=== PATIENT | female | born 1985 | race Caucasian/White ===

== ENCOUNTER 2016-04-07 19:43 | Emergency (ER) | payer OTHER ==
--- NOTE | 2016-04-07 22:18 | RAD ---
Indication: RIGHT shoulder pain. Pain at the AC joint. Question calcific tendinopathy. Comparison: None. Technique: Internal and external rotation AP and scapular Y views RIGHT shoulder Report: Normal acromioclavicular and glenohumeral joint alignment. Mildly prominent transverse gap at the AC joint. Negative for increased coracoclavicular distance. Mild AC joint osteophytosis and subchondral cystic change. Normal glenohumeral joint alignment. Negative for fracture. Negative for stigmata of calcific tendinopathy. Unremarkable soft tissue contours. IMPRESSION: 1. Low-grade AC joint separation and degenerative arthropathy. 2. Negative for calcific tendinopathy.
[2016-04-08] MEDS ORDERED: Ketorolac INJ* 60 MG/2 ML VIAL IM ONE
[2016-04-08 00:20] VITALS: BP 106/67
--- NOTE | 2016-04-08 15:28 | ED ---
Upper Extremity Pain - HPI Summary HPI Summary: Patient arrives with a 1 month worsening history of right shoulder pain not improving with rest, ice and OTC medications. Pain does not radiate. Pain is better with rest and worse with activity. She denies known trauma to the area. She works at [employer] and lifts a lot. She states she may have injured the area during that time. She states to lift the shoulder causes pain and she is unable to push or pull heavy objects without illiciting pain in the anterior shoulder. - History of Current Complaint Chief Complaint: Toma Stated Complaint: RIGHT SHOULDER PAIN Time Seen by Provider: 04/07/16 23:14 Hx Obtained From: Patient Mechanism Of Injury: Unknown Onset/Duration: Started Weeks Ago Timing: Constant Severity Initially: Moderate Severity Currently: Moderate Pain Location: Shoulder - right Alleviating Factor(s): Rest, Ice Related History: Dominant Hand Right - Risk Factors Non-Orthopedic Risk Factor: Negative DVT Risk Factors: Negative Septic Arthritis Risk Factor: Negative Compartment Syndrome Risk Factors: Pain - Allergies/Home Medications Allergies/Adverse Reactions: Allergies Allergy/AdvReac Type Severity Reaction Status Date / Time Nickel Allergy Mild Unknown Verified 04/07/16 19:53 Reaction Details Shellfish Allergy Allergy Swelling Verified 04/07/16 19:53 PMH/Surg Hx/FS Hx/Imm Hx Previously Healthy: Yes Endocrine/Hematology History: Denies: Hx Diabetes Cardiovascular History: Denies: Hx Hypertension, Hx Pacemaker/ICD Respiratory History: Reports: Hx Asthma History: Denies: Hx Dialysis, Hx Renal Disease Sensory History: Denies: Hx Hearing Aid Psychiatric History: Denies: Hx Panic Disorder - Surgical History Surgery Procedure, Year, and Place: GASTRIC SLEEVE; COSMETIC SKIN REMOVAL; tonsillectomy;. RIGHT ANKLE TENDON REPAIR - Immunization History Hx Pertussis Vaccination: Yes Immunizations Up to Date: Yes Infectious Disease History: No Infectious Disease History: Denies: Traveled Outside the [place] in Last 30 Days - Family History Known Family History: Negative: Cardiac Disease, Hypertension, Diabetes - Social History Occupation: Employed Full-time Lives: With Family Alcohol Use: Rare Hx Substance Use: No Substance Use Type: Reports: None Hx Tobacco Use: No Smoking Status (MU): Never Smoked Tobacco Review of Systems Constitutional: Negative Cardiovascular: Negative Respiratory: Negative Positive: Arthralgia - right shoulder Skin: Negative Neurological: Negative Psychological: Normal All Other Systems Reviewed And Are Negative: Yes Physical Exam Vital Signs On Initial Exam: Initial Vitals Temp Pulse Resp BP Pulse Ox 97.6 F 80 18 124/80 99 04/07/16 19:53 04/07/16 19:53 04/07/16 19:53 04/07/16 19:53 04/07/16 19:53 Completion Of Physical Exam Limited Due To: Dementia Appearance: Positive: Well-Appearing, No Pain Distress, Well-Nourished Skin: Positive: Warm, Skin Color Reflects Adequate Perfusion Eyes: Positive: Normal, EOMI Neck: Positive: Supple, Nontender, No Lymphadenopathy Respiratory/Lung Sounds: Positive: Clear to Auscultation Cardiovascular: Positive: Normal Bowel Sounds: Positive: Present Musculoskeletal: Positive: Interruption @, Abnormal @, Pain @. Negative: Other - Neer test, empty can test, positive ARC painful. Neurological: Positive: Sensory/Motor Intact, Alert, Oriented to Person Place, Time, Speech Normal Psychiatric: Positive: Normal, Affect/Mood Appropriate - Mitchell Coma Scale Best Eye Response: 4 - Spontaneous Best Motor Response: 6 - Obeys Commands Best Verbal Response: 5 - Oriented Diagnostics - Vital Signs Vital Signs Temp Pulse Resp BP Pulse Ox 04/08/16 00:19 97 F 60 16 106/67 04/07/16 21:50 98.5 F 71 18 125/70 99 04/07/16 19:53 97.6 F 80 18 124/80 99 - Laboratory Lab Statement: Any lab studies that have been ordered have been reviewed, and results considered in the medical decision making process. - Radiology No standard instances Xray Interpretation: Positive (See Comments) Radiology Interpretation Completed By: Radiologist - small tear of AC joint Course/Dx - Course Course Of Treatment: Neer test, empty can test, positive ARC painful. Unknown injury. Pain in right shoulder x1 month. worsening pain. Unable to lift, pull or push. Xray shows small AC tear in right shoulder. Restrictions given for work. Few doses of pain medication given, sling given and follow up with Dr. David. - Diagnoses Differential Diagnosis/HQI/PQRI: Positive: Arthritis, Strain, Sprain Provider Diagnoses: Acromioclavicular joint separation, type 1 Discharge - Discharge Plan Condition: Stable Disposition: HOME Prescriptions: HYDROcodone/ACETAMIN 5-325 MG* [Carrier 5-325 TAB*] 1 tab PO Q6H PRN #15 tab MDD 4 PRN Reason: Pain Patient Education Materials: Rotator Cuff Injury (ED) Forms: *Work Release Referrals: Non Staff,Doctor [Primary Care Provider] - Bianca David MD [Medical Doctor] -
== END 2016-04-08 00:19 | disposition home or self-care (01) ==
LOC: ED 19:43
DX: S43.101A Unspecified dislocation of right acromioclavicular joint, initial encounter (principal); M25.511 Pain in right shoulder; X58.XXXA Exposure to other specified factors, initial encounter; Y93.9 Activity, unspecified; Y92.9 Unspecified place or not applicable; Y99.9 Unspecified external cause status
CPT/HCPCS: 96372; 99282; J1885

== ENCOUNTER 2016-07-03 17:44 | Emergency (ER) | payer OTHER ==
[2016-07-03] MEDS ORDERED: NS 0.9% 1000 ML* 2,000 ML IV ONE (18:44)
[2016-07-03 19:08] LABS: Hematocrit 36 % (35-47); Hemoglobin 12.4 g/dl (12.0-16.0); Mean Corpuscular HGB Conc 34 g/dl (31-36); Mean Corpuscular Hemoglobin 30 pg (27-31); Mean Corpuscular Volume 88 fL (80-97); Mean Platelet Volume 8 um3 (7.4-10.4); Red Blood Count 4.15 10^6/ul (4.0-5.4); Red Cell Distribution Width 14 % (10.5-15); White Blood Count 8.1 10^3/ul (3.5-10.8)
[2016-07-03 19:09] LABS: Urine Bilirubin Negative (Negative); Urine Glucose Negative (Negative); Urine Nitrite Negative (Negative)
[2016-07-03 19:21] LABS: Albumin 3.4 g/dL (3.2-5.2); BUN/Creatinine Ratio 13.1 (8-20); Calcium 8.4 mg/dL (8.6-10.3); EGFR African American 145.3 (>60); Globulin 2.7 g/dL (2-4); Magnesium 1.8 mg/dL (1.9-2.7); Potassium 3.5 mmol/L (3.5-5.0); Total Bilirubin 0.5 mg/dL (0.2-1.0); Total Protein 6.1 g/dL (6.4-8.9)
[2016-07-03] MEDS ORDERED: Magnesium Oxide TAB* 400 MG PO ONE (19:58)
[2016-07-03] MEDS ORDERED: Potassium Chlor TAB* 20 MEQ TAB.ER PO ONE (19:58)
--- NOTE | 2016-07-03 20:02 | ED ---
Marcella Deleon Rebecca, scribed for Catherine Estevez MD on 07/03/16 at 1845 . - HPI Summary HPI Summary: Pt is a 31 y/o F who presents to ED c/o bilateral hand tremors. Sx suddenly began 2 days ago and have been intermittent since onset. Reports occasional tremors in the L hand, but sx are predominantly in the R hand. Sx aggravated and alleviated by nothing. Additionally c/o lightheadedness. Denies RAUSCH, dizziness, vomiting and dysuria. Reports a decrease in PO intake secondary to increased stress in the last week. 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 A1. LNMP in March,. - History of Current Complaint Chief Complaint: EDGeneral Stated Complaint: WEAKNESS, Time Seen by Provider: 07/03/16 18:25 Hx Obtained From: Patient Chief Complaint: Other: - Hand tremors Onset/Duration: Started Days Ago - 2 days ago, Still Present Timing: Intermittent Current Severity: None Pain Intensity: 0 Location of Pain: None Character: None Aggravating Factors: Nothing Alleviating Factors: Nothing Associated Signs and Symptoms: Positive: Other: - Hand tremors, lightheadedness. Negative: Vomiting - Allergies/Home Medications Allergies/Adverse Reactions: Allergies Allergy/AdvReac Type Severity Reaction Status Date / Time Nickel Allergy Mild Unknown Verified 07/03/16 17:48 Reaction Details Shellfish Allergy Allergy Swelling Verified 07/03/16 17:48 PMH/Surg Hx/FS Hx/Imm Hx Endocrine/Hematology History: Denies: Hx Diabetes Cardiovascular History: Denies: Hx Hypertension, Hx Pacemaker/ICD Respiratory History: Reports: Hx Asthma History: Denies: Hx Dialysis, Hx Renal Disease Sensory History: Denies: Hx Hearing Aid Psychiatric History: Denies: Hx Panic Disorder - Surgical History Surgery Procedure, Year, and Place: GASTRIC BYPASS,T&A, RT ANKLE SUGERY, SKIN REMOVAL Infectious Disease History: No Infectious Disease History: Denies: Traveled Outside the [place] in Last 30 Days - Family History Known Family History: Negative: Cardiac Disease, Hypertension, Diabetes - Social History Alcohol Use: Rare Hx Substance Use: No Substance Use Type: Reports: None Hx Tobacco Use: No Smoking Status (MU): Never Smoked Tobacco Review of Systems Negative: Vomiting Negative: dysuria Neurological: Other - Bilateral hand tremors, worse in the right; lightheadedness; Denies dizziness Negative: Headache All Other Systems Reviewed And Are Negative: Yes Physical Exam - Summary Physical Exam Summary: General: Well appearing, no pain distress Skin: Warm, Skin Color Reflects Adequate Perfusion, Dry Eyes: EOMI, ABDOUL ENT: Pharynx normal, TMs normal Neck: Supple, nontender Respiratory: CTA, breath sounds present, no rhonchi, no wheezes, no rales Cardiovascular: RRR, no murmur, no rub, no gallop Abdomen: Soft, nontender, Non-distended, no guarding, no rebound Bowel: Present Musculoskeletal: ZABRINA, No edema Neuro: Sensory/motor intact, A&Ox3, CN intact 2-12 Psych: Affect/mood appropriate - Physical Exam Triage Information Reviewed: Yes Vital Signs Reviewed: Yes Diagnostics - Vital Signs Vital Signs Temp Pulse Resp BP Pulse Ox 07/03/16 17:46 97.3 F 77 18 128/71 100 - Laboratory Lab Results: Lab Results 07/03/16 Range/Units 18:22 POC Glucose (mg/dL) 94 (74-106) mg/dL Result Diagrams: 07/03/16 18:55 07/03/16 18:55 Lab Statement: Any lab studies that have been ordered have been reviewed, and results considered in the medical decision making process. Re-Evaluation - Re-Evaluation First Eval Re-Evaluation Time: 19:58 Change: Improved Comment: Pt expresses that she would like to be D/C. Course/Dx - Course Course Of Treatment: pt here with lots of stressors in her life, family who has been shakey she is 14 weeks , she does have a mild tremor that does resolve when she is being examined. labs were fine except for borderline low potassium and mag, she described not doing a great job with hydration and did feel much better after a liter of ivf - Diagnoses Provider Diagnoses: Hypokalemia Discharge - Discharge Plan Condition: Stable Disposition: HOME Patient Education Materials: Hypokalemia (ED) Referrals: Non Staff,Doctor [Primary Care Provider] - 3 Days NIH Scale - NIH Scale Level of Consciousness: Alert/Keenly Responsive Ask Patient the Month and His/Her Age: Both Correct Ask Pt to Open/Close Eyes and Home Based Assistant/Release Non-Paretic Hand: Both Correctly Best Gaze (Only Horizontal Eye Movement): Normal Visual Field Testing: No Visual Loss Facial Paresis-Pt to Smile & Close Eyes or Grimace Symmetry: Normal/Symmetrical Motor Function - Right Arm: No Drift-Holds 10 Seconds Motor Function - Left Arm: No Drift-Holds 10 Seconds Motor Function - Right Leg: No Drift-Holds 10 Seconds Motor Function - Left Leg: No Drift-Holds 10 Seconds Limb Ataxia-Must be out of Proportion to Weakness Present: Absent Sensory (Use Pinprick to Test Arms/Legs/Trunk/Face): Normal Best Language (Describe Picture, Name Items): No Aphasia Dysarthria (Read Several Words): Normal Extinction and Inattention: No Abnormality Total Score: 0 The documentation as recorded by the Marcella green Rebecca accurately reflects the service I personally performed and the decisions made by me, Catherine Estevez MD.
[2016-07-03 20:25] VITALS: BP 103/64
[2016-07-04 07:48] LABS: TSH (Thyroid Stimulating Horm) 0.77 mcIU/mL (0.34-5.60)
== END 2016-07-03 20:20 | disposition home or self-care (01) ==
LOC: ED 17:44
DX: E87.6 Hypokalemia (principal); R25.1 Tremor, unspecified
CPT/HCPCS: 36415; 80053; 81003; 83605; 83735; 84443; 85025; 96360; 99283; A9270-GY

== ENCOUNTER 2016-07-06 04:08 | Emergency (ER) | payer OTHER ==
[2016-07-06] MEDS ORDERED: NS 0.9% 1000 ML* 1,000 ML IV ONE (04:31)
[2016-07-06 04:50] LABS: Hematocrit 35 % (35-47); Hemoglobin 12.1 g/dl (12.0-16.0); Mean Corpuscular HGB Conc 34 g/dl (31-36); Mean Corpuscular Hemoglobin 30 pg (27-31); Mean Corpuscular Volume 87 fL (80-97); Mean Platelet Volume 8 um3 (7.4-10.4); Red Blood Count 4.05 10^6/ul (4.0-5.4); Red Cell Distribution Width 14 % (10.5-15); White Blood Count 6.7 10^3/ul (3.5-10.8)
--- NOTE | 2016-07-06 05:04 | ED ---
Noelle Deleon Erika, scribed for Bud Tinsley MD on 07/06/16 at 0433 . GI/ HPI - HPI Summary HPI Summary: Patient is a 31-year-old female presenting to the ED with a CC of abdominal cramping in . Pt reports that she developed cramping around 01:00 today. Pain is located epigastric and in the lower abdomen. She denies vaginal bleeding. Pt is approximately 14 weeks . Pt states she most recently saw her OB on 07/02/2016, and they did an ultrasound. Pt states Hx miscarriage. - History of Current Complaint Chief Complaint: EDOBProblems Time Seen by Provider: 07/06/16 04:20 Stated Complaint: CRAMPING Hx Obtained From: Patient, Family/Content Assistant - Onset/Duration: Started Hours Ago, Atraumatic, Still Present Timing: Intermittent Severity: Moderate Pain Intensity: 4 Location of Pain: Epigastric - and lower abdomen Pain Characteristics: Cramping Additional Signs & Symptoms: Negative: Vaginal Bleeding Alleviating Factor(s): Nothing - Allergy/Home Medications Allergies/Adverse Reactions: Allergies Allergy/AdvReac Type Severity Reaction Status Date / Time Nickel Allergy Mild Unknown Verified 07/03/16 17:48 Reaction Details Shellfish Allergy Allergy Swelling Verified 07/03/16 17:48 PMH/Surg Hx/FS Hx/Imm Hx Endocrine/Hematology History: Denies: Hx Diabetes Cardiovascular History: Denies: Hx Hypertension, Hx Pacemaker/ICD Respiratory History: Reports: Hx Asthma History: Denies: Hx Dialysis, Hx Renal Disease Sensory History: Denies: Hx Hearing Aid Psychiatric History: Denies: Hx Panic Disorder - Surgical History Surgery Procedure, Year, and Place: GASTRIC BYPASS,T&A, RT ANKLE SUGERY, SKIN REMOVAL Infectious Disease History: No Infectious Disease History: Denies: Traveled Outside the [place] in Last 30 Days - Family History Known Family History: Negative: Cardiac Disease, Hypertension, Diabetes - Social History Lives: With Family Hx Substance Use: No Substance Use Type: Reports: None Hx Tobacco Use: No Smoking Status (MU): Never Smoked Tobacco Review of Systems Negative: Fever Positive: Abdominal Pain All Other Systems Reviewed And Are Negative: Yes Physical Exam Triage Information Reviewed: Yes Vital Signs On Initial Exam: Initial Vitals Temp Pulse Resp BP Pulse Ox 97.3 F 72 16 112/67 98 07/06/16 04:14 07/06/16 04:14 07/06/16 04:14 07/06/16 04:14 07/06/16 04:14 Vital Signs Reviewed: Yes Appearance: Positive: Well-Appearing, No Pain Distress Skin: Positive: Warm Head/Face: Positive: Normal Head/Face Inspection Eyes: Positive: ABDOUL ENT: Positive: Hearing grossly normal Neck: Positive: Supple Respiratory/Lung Sounds: Positive: Clear to Auscultation, Breath Sounds Present Cardiovascular: Positive: RRR Abdomen Description: Positive: Nontender - gravid uterus, Soft Bowel Sounds: Positive: Present Musculoskeletal: Positive: Strength/ROM Intact Neurological: Positive: Alert, Oriented to Person Place, Time Psychiatric: Positive: Affect/Mood Appropriate Diagnostics - Vital Signs Vital Signs Temp Pulse Resp BP Pulse Ox 07/06/16 04:14 97.3 F 72 16 112/67 98 - Laboratory Lab Results: Lab Results 07/06/16 Range/Units 04:35 WBC 6.7 (3.5-10.8) 10^3/ul RBC 4.05 (4.0-5.4) 10^6/ul Hgb 12.1 (12.0-16.0) g/dl Hct 35 (35-47) % MCV 87 (80-97) fL MCH 30 (27-31) pg MCHC 34 (31-36) g/dl RDW 14 (10.5-15) % Plt Count 173 (150-450) 10^3/ul MPV 8 (7.4-10.4) um3 Neut % (Auto) 51.9 (38-83) % Lymph % (Auto) 34.5 (25-47) % Barry % (Auto) 6.8 (1-9) % Eos % (Auto) 6.0 (0-6) % Baso % (Auto) 0.8 (0-2) % Absolute Neuts (auto) 3.5 (1.5-7.7) 10^3/ul Absolute Lymphs (auto) 2.3 (1.0-4.8) 10^3/ul Absolute Monos (auto) 0.5 (0-0.8) 10^3/ul Absolute Eos (auto) 0.4 (0-0.6) 10^3/ul Absolute Basos (auto) 0.1 (0-0.2) 10^3/ul Absolute Nucleated RBC 0 10^3/ul Nucleated RBC % 0.1 Result Diagrams: 07/06/16 04:35 07/06/16 04:35 Lab Statement: Any lab studies that have been ordered have been reviewed, and results considered in the medical decision making process. GIGU Course/Dx - Course Assessment/Plan: A 31 y/o F presents to the ED with a CC of abdominal cramping in . Blood work obtained, Beta HCG 82014. Patient is awaiting transvaginal US. Pt will be signed out to Dr. Monte pending ultrasound. - Diagnoses Provider Diagnoses: Pelvic cramping, Threatened miscarriage Discharge - Discharge Plan Condition: Stable Disposition: HOME Discharge Disposition Comment: Signed out to Dr. Monte pending transvaginal ultrasound Patient Education Materials: Threatened Miscarriage (ED), (ED), Pelvic Pain (ED) Referrals: [facility] [Provider Group] Additional Instructions: FOLLOW UP WITH YOUR DIRECTOR MEDICAL WRITING. The documentation as recorded by the Noelle green Erika accurately reflects the service I personally performed and the decisions made by , Bud Tinsley MD.
[2016-07-06 05:07] LABS: Albumin 3.4 g/dL (3.2-5.2); BUN/Creatinine Ratio 18.6 (8-20); C Reactive Protein 5.28 mg/L (< 5.00); Calcium 8.7 mg/dL (8.6-10.3); EGFR Non-African American 117.4 (>60); Globulin 2.6 g/dL (2-4); Potassium 3.3 mmol/L (3.5-5.0); Total Bilirubin 0.4 mg/dL (0.2-1.0)
[2016-07-06 09:03] LABS: Urine Bacteria Absent (Absent); Urine Bilirubin Negative (Negative); Urine Glucose Negative (Negative); Urine Nitrite Negative (Negative); Urine Sperm Present (Absent)
--- NOTE | 2016-07-06 10:02 | RAD ---
HISTORY: Cramping. The gestational age by dates is: Unknown COMPARISONS: None available at the time of dictation. TECHNIQUE: Multiple transverse and longitudinal ultrasound images were obtained of the gravid uterus using Grayscale, color Doppler, and M-mode Doppler imaging. FINDINGS: /PLACENTAL EVALUATION: Number of fetuses: Single Presentation: Variable cardiac activity: 161 bpm Gross motion: Observed Placenta position: Posterior Amniotic fluid volume: Normal BIOMETRY: Biparietal diameter: 2.6 cm 14 weeks, 5 days Head circumference: 10.3 cm 15 weeks, 0 days Abdominal circumference: 8.7 cm 15 weeks, 0 days Femur length: 1.4 cm 40 weeks, 2 days HC/AC: 1.19 Estimated weight: 102 grams, +/- 15 grams GESTATIONAL AGE: The composite gestational age is: Weeks, 6 days. The FLACO is: December 29, 2016. ANATOMY: An anatomic evaluation is not performed as part of this evaluation CERVIX: The cervix is long and closed, without funneling.. . OTHER: None IMPRESSION: 1. LIMITED STUDY THAT DOES NOT INCLUDE AN ANATOMIC EVALUATION. 2. SINGLE LIVE INTRAUTERINE GESTATION AT 14 WEEKS, 6 DAYS BY COMPOSITE GESTATIONAL AGE.
[2016-07-06 11:23] VITALS: BP 118/53
--- NOTE | 2016-07-06 18:18 | ED ---
ILloyd Billy, scribed for Esa Monte MD on 07/06/16 at 1116 . Progress - Progress Note Progress Note: Patient signed out by Dr. Tinsley at shift change pending pelvic ultrasound. Results reviewed. The case was discussed with Dr. Monique who recommended for the patient to be discharged home to follow up with her DISH TECHNICIAN. - Results/Orders Results/Orders: PELVIC ULTRASOUND: 1. LIMITED STUDY THAT DOES NOT INCLUDE AN ANATOMIC EVALUATION. 2. SINGLE LIVE INTRAUTERINE GESTATION AT 14 WEEKS, 6 DAYS BY COMPOSITE GESTATIONAL AGE. Course/Dx - Course Course Of Treatment: Patient signed out by Dr. Tinsley at shift change pending pelvic ultrasound. The patient came to the ED for evaluation of abdominal pranking. She is . He ordered a pelvic ultrasound and we were requested to follow up on the results. Pelvic ultrasound shows 1. limited study that does not include an anatomic evaluation. 2. single live intrauterine gestation at 14 weeks, 6 days by composite gestational age. I discussed these findings and test results with Dr. Monique who recommended for the patient to be discharged home to follow up with DISH TECHNICIAN. She does not have any abdominal cramping, vaginal bleeding, or discharge at this time, therefore I did not do any further workup. The patient is hemodynamically stable, A&Ox3. - Diagnoses Provider Diagnoses: Pelvic cramping, Threatened miscarriage - Provider Notifications Discussed Care Of Patient With: Dr. Monique (DISH TECHNICIAN) at 1113: recommends discharge to follow up with her DISH TECHNICIAN. Discharge - Discharge Plan Condition: Stable Disposition: HOME Patient Education Materials: Pelvic Pain (ED), Threatened Miscarriage (ED), (ED) Referrals: [facility] [Provider Group] Additional Instructions: FOLLOW UP WITH YOUR DISH TECHNICIAN. The documentation as recorded by the Lloyd green Billy accurately reflects the service I personally performed and the decisions made by , Esa Monte MD.
== END 2016-07-06 11:23 | disposition home or self-care (01) ==
LOC: ED 04:08
DX: O20.0 Threatened abortion (principal); Z3A.14 14 weeks gestation of pregnancy; R10.30 Lower abdominal pain, unspecified; R10.13 Epigastric pain
CPT/HCPCS: 36415; 76815; 80053; 81003; 81015; 84702; 85025; 86140; 87086; 96360; 99282

== ENCOUNTER 2016-12-24 07:00 | Inpatient (IN) | payer MEDICAID ==
[2016-12-24] MEDS ORDERED: ceFAZolin 2 GM PREMIX (*) 2 GM/50 ML BAG IVPB ONE ×2 (08:00→15:31)
[2016-12-24] MEDS ORDERED: Sodium Citrate/Citric Acid* 15 ML UDC PO ONE (08:00)
[2016-12-24] MEDS ORDERED: Morphine PF AMP (0.5MG/ML)* 5 MG/10 ML AMP ONE (08:42)
[2016-12-24] MEDS ORDERED: OXYTOCIN* 10 UNITS/ML 1 ML VIAL ONE (09:18)
[2016-12-24] MEDS ORDERED: Ketorolac INJ* 30 MG/ML 1 ML VIAL ONE (09:33)
[2016-12-24] MEDS ORDERED: Oxytocin in LR* 20 UNITS/1,000 ML BAG IVPB ONE (09:57)
[2016-12-24] MEDS ORDERED: oxyCODONE TAB* 5 MG TAB PO PRN (10:10)
[2016-12-24] MEDS ORDERED: HYDROcodone/ACETAMIN 5-325 MG* 1 TAB PO PRN (10:10)
[2016-12-24] MEDS ORDERED: DiMENhydriNATE IV* 50 MG/ML VIAL IV PUSH PRN ×2 (10:10→10:11)
[2016-12-24] MEDS ORDERED: Ondansetron INJ* 2 MG/ML VIAL IV PRN ×2 (10:10→10:11)
[2016-12-24] MEDS ORDERED: HYDROmorphone INJ* 1 MG/ML CARPUJECT SYRINGE IV PRN (10:10)
[2016-12-24] MEDS ORDERED: fentaNYL* 50 MCG/ML 2 ML VIAL (100 MCG VIAL) IV PRN ×2 (10:10→16:06)
[2016-12-24] MEDS ORDERED: Naloxone* 0.4 MG/ML 1 ML VIAL IV PRN (10:11)
[2016-12-24] MEDS ORDERED: Scopolamine 1.5 mg* PATCH TRANSDERM PRN (10:11)
[2016-12-24] MEDS ORDERED: Scopolamine PATCH Remove* 1 NOTE MISC PATCH OFF PRN (10:11)
[2016-12-24] MEDS ORDERED: Ketorolac INJ* 30 MG/ML 1 ML VIAL IV PRN (10:11)
[2016-12-24] MEDS ORDERED: oxyCODONE/Acetamin 5/325 MG* TAB PO PRN (10:11)
[2016-12-24] MEDS ORDERED: Dibucaine 1% 28.35 GM TUBE PR PRN (11:32)
[2016-12-24] MEDS ORDERED: Glycerin ADULT SUPP PR PRN (11:32)
[2016-12-24] MEDS ORDERED: Zolpidem TAB* 5 MG PO PRN (11:32)
[2016-12-24] MEDS ORDERED: Witch Hazel PAD* JAR TOPICAL PRN (11:32)
[2016-12-24] MEDS ORDERED: Nalbuphine* 20 MG/ML 1 ML VIAL ONE (12:52)
[2016-12-24] MEDS: Nalbuphine* 20 MG/ML 1 ML VIAL IV PRN ×2 (12:53→22:14)
[2016-12-24] MEDS: Docusate CAP* 100 MG PO SCH ×2 (13:34→22:06)
[2016-12-24] MEDS: Simethicone TAB* 80 MG TAB.CHEW PO SCH ×3 (13:34→22:07)
[2016-12-24] MEDS: HYDROcodone/ACETAMIN 5-325 MG* 1 TAB PO PRN ×3 (14:38→22:08)
[2016-12-24] MEDS ORDERED: fentaNYL* 50 MCG/ML 2 ML VIAL (100 MCG VIAL) ONE (15:32)
[2016-12-24] MEDS ORDERED: Midazolam* 1 MG/ML 2 ML VIAL (2 MG) ONE ×2 (15:32→15:58)
[2016-12-24] MEDS ORDERED: Ondansetron INJ* 2 MG/ML VIAL ONE (15:56)
[2016-12-24 18:16] LABS: Hematocrit 25 % (35-47); Hemoglobin 7.9 g/dl (12.0-16.0)
[2016-12-25] MEDS ORDERED: oxyCODONE/Acetamin 5/325 MG* TAB PO PRN (02:11)
[2016-12-25] MEDS ORDERED: Acetaminophen TAB* 325 MG PO PRN (02:11)
[2016-12-25] MEDS: oxyCODONE/Acetamin 5/325 MG* TAB PO PRN ×4 (03:58→23:29)
[2016-12-25 07:17] LABS: Hematocrit 23 % (35-47); Hemoglobin 7.5 g/dl (12.0-16.0); Mean Corpuscular HGB Conc 33 g/dl (31-36); Mean Corpuscular Hemoglobin 27 pg (27-31); Mean Corpuscular Volume 81 fL (80-97); Mean Platelet Volume 8 um3 (7.4-10.4); Red Blood Count 2.82 10^6/ul (4.0-5.4); Red Cell Distribution Width 14 % (10.5-15); White Blood Count 9.5 10^3/ul (3.5-10.8)
--- NOTE | 2016-12-25 07:28 | OP ---
OPERATIVE REPORT: DATE OF OPERATION: 12/24/16 DATE OF : 81 SURGEON: Jannie Marie MD. HOUSE SUPERINTENDENT: Mike Lock CNM. PRE-OP DIAGNOSES: Intrauterine gestation at 39 weeks gestational age, prior section, declines trial of labor after section. POST-OP DIAGNOSIS: Intrauterine gestation at 39 weeks gestational age, prior section, declines trial of labor after section. OPERATIVE PROCEDURE: Repeat low transverse section. ESTIMATED BLOOD LOSS: 800 mL. FLUIDS: Crystalloid. DRAINS: Salas catheter. FINDINGS: Normal appearing uterus, ovaries, and tubes. Normal appearing placenta. Male infant, Apgars 9 and 9. COUNTS: All correct. DESCRIPTION OF PROCEDURE: After informed consent was signed, the patient was taken to the operating room where she was given spinal anesthesia that was found to be adequate. She was prepped and draped in the dorsal supine position with leftward tilt. A Pfannenstiel skin incision was made with the scalpel and carried down to the underlying layer of fascia with a scalpel. A loose staple was found in the subcuticular layer. The fascia was incised in either of the midline and the fascial incision extended laterally with blunt pressure. The inferior edge of the fascial incision was grasped with Mehnaz clamps, tented up and dissected down bluntly. The superior edge of the incision was then grasped with Mehnaz clamps, tented up, and dissected down with a combination of sharp and blunt dissection. The rectus muscles were in the midline and the peritoneum was entered bluntly. The peritoneum was extended laterally with a combination of sharp and blunt dissection. There were four panchito found loosely attached to the lower central uterus. A bladder blade was inserted and a transverse incision was made in the lower uterine segment with a scalpel. The uterine incision was extended superiorly and inferiorly with blunt pressure. The infant's head delivered with fundal pressure followed by the shoulders and the rest of the body. The cord was milked towards the baby and clamped x2 after 30 seconds, then cut. The baby was handed to the stores naval. Cord blood was collected. The placenta delivered with fundal massage and gentle cord traction. The uterus was cleared of clots and debris. The uterus was then exteriorized and the uterine incision was closed with 0 Vicryl in a running locked fashion with a second layer of suture imbricating the first. Good hemostasis was noted. The abdomen was then irrigated and the uterus was placed back into the abdominal cavity. Incision was inspected once again and good hemostasis was noted. The peritoneum was closed with 3-0 chromic in a running unlocked fashion. The fascia was closed with 0 Vicryl in a running unlocked fashion. The subcuticular layer was closed with 3-0 chromic in three interrupted sutures and the skin was closed with 4-0 Monocryl in a running subcuticular fashion. Incision was cleaned. Mastisol and Steri-Strips were placed and the patient was moved to the stretcher and taken to the recovery room in stable condition. [id number]/[facility] #: [id number] MTDD
[2016-12-25] MEDS ORDERED: DEXTROMETHORPHAN PO PRN (07:45)
[2016-12-25] MEDS ORDERED: diPHENhydraMINE PO* 25 MG PO PRN (07:46)
[2016-12-25] MEDS: Ferrous Gluconate TAB* 324 MG TAB PO SCH ×2 (07:53→19:54)
[2016-12-25] MEDS: Simethicone TAB* 80 MG TAB.CHEW PO SCH ×4 (07:53→19:55)
[2016-12-25] MEDS: Docusate CAP* 100 MG PO SCH ×3 (07:53→19:54)
[2016-12-25] MEDS ORDERED: diPHENhydraMINE PO* 25 MG ONE (09:33)
--- NOTE | 2016-12-25 09:43 | OP ---
OPERATIVE REPORT: DATE OF OPERATION: 12/24/16 DATE OF : 81 SURGEON: Jannie Marie MD. FIELD CASHIER: Mike Lock CNM. ANESTHESIA: Spinal. PRE-OP DIAGNOSIS: Incisional hematoma, status post section. POST-OP DIAGNOSIS: Resolution of the bleeding, evacuation of hematoma. OPERATIVE PROCEDURE: Exploration of section incision, evacuation of hematoma. ESTIMATED BLOOD LOSS: 400 mL. FLUIDS: Crystalloid. FINDINGS: Small bleeder on the left side of the incision, in the subcuticular layer. Good hemostasi s after evacuation, suture, and cautery. COUNTS: Counts were all correct. DESCRIPTION OF PROCEDURE: After informed consent was signed, the patient was taken to the operating room where she was given a spinal anesthesia that was found to be adequate. She was prepped and drap ed in the dorsal supine position. The subcuticular sutures were incised with scalpel and the incisio n was opened. A large amount of blood clot was evacuated from the incision. The sutures to the subc uticular layer were also removed. After evacuation a small bleeder was found in the left lower side of the incision. This was tied off with 3-0 Vicryl. Good hemostasis was noted in that area after th is. A few other very small areas of bleeding were noted and were cauterized. The incision was irrig ated copiously and good hemostasis was noted. 3-0 Vicryl was then used in interrupted sutures to tarah se the subcuticular fat and the skin was then closed with 4-0 Monocryl in a subcuticular fashion. M astisol and Steri-Strips were placed. The patient was then moved to the stretcher and taken to the r ecovery room in stable condition. [id number]/[facility] #: [id number]
[2016-12-25] MEDS: Ibuprofen TAB* 600 MG PO PRN ×3 (10:27→23:29)
[2016-12-25] MEDS ORDERED: GuaiFENesin DM* 5 ML UDC PO PRN (10:35)
[2016-12-25] MEDS ORDERED: Calcium Carbonate CHEW TAB* 500 MG (TUMS) ONE (10:51)
[2016-12-25] MEDS: Calcium Carbonate CHEW TAB* 500 MG (TUMS) PO PRN (15:29)
[2016-12-25] MEDS: GuaiFENesin DM sugar free* 5 ML UDC PO PRN (15:30)
--- NOTE | 2016-12-25 16:27 | RAD ---
HISTORY: Fixed dilated right pupil. COMPARISONS: None TECHNIQUE: The following sequences were obtained of the head: Sagittal T1-weighted images, axial T2-weighted images, axial FLAIR images, axial susceptibility weighted images, axial T1-weighted images. Additionally, axial diffusion-weighted images were obtained with calculated apparent diffusion coefficients.. FINDINGS: HEMORRHAGE/INFARCT: There is no hemorrhage or acute infarct. MASSES/SHIFT: There is no mass or shift. EXTRA-AXIAL SPACES/MENINGES: There are no extra-axial fluid collections. SULCI AND VENTRICLES: The sulci and ventricles are normal in size and position for the patient's stated age. CEREBRUM: There are no focal parenchymal abnormalities. BRAINSTEM: There are no focal parenchymal abnormalities.The oculomotor nerve on the right is likely identified on the axial T2-weighted images (image 9 of 30) and does not exhibit any focal abnormalities or differences relative to the contralateral side. CEREBELLUM: There are no focal parenchymal abnormalities. The cerebellar tonsils are normal in size and position. SELLA: The sella is normal. PINEAL: The pineal region is clear. CP ANGLE/TEMPORAL BONES: The labyrinthine structures are grossly normal. VESSELS: Normal flow-voids are noted within the visualized vertebral vasculature. DIFFUSION ABNORMALITIES: There are no diffusion abnormalities. PARANASAL SINUSES/MASTOIDS: The paranasal sinuses are clear. ORBITS: The orbits are unremarkable. BONES AND SOFT TISSUE: No bone or soft tissue abnormalities are noted. IMPRESSION: NORMAL MRI OF THE BRAIN.
--- NOTE | 2016-12-25 16:45 | RAD ---
INDICATION: Fixed dilated right pupil COMPARISON: Same day MRI of the brain that does not show any signs of an acute focal or territorial infarction. TECHNIQUE: A 3-D time of flight magnetic resonance angiogram was performed from the carotid bifurcation to the vertex without intravenous contrast. Images were reconstructed in the maximum intensity projection format. FINDINGS: Brain: The internal carotid, anterior and middle cerebral arteries appear patent without evidence for high-grade stenosis or occlusion. The vertebral, basilar and posterior cerebral arteries appear patent without evidence for high-grade stenosis or occlusion. No aneurysm or vascular malformation is seen. IMPRESSION: Normal MRA of the brain.
--- NOTE | 2016-12-25 16:49 | RAD ---
HISTORY: Fixed dilated right pupil COMPARISONS: None TECHNIQUE: Multiple 3-D phase contrast MR venography was performed, with multiple 3-D maximum intensity projection reconstructions. FINDINGS: VENOUS SINUSES: The venous sinuses are patent. There is no stenosis or occlusion. There is no filling defect to suggest thrombosis. The left transverse sinus is diminutive relative to the right. DEEP VEINS: The deep veins are patent. The internal cerebral veins are dominant over the basal veins of Lakhwinder. OTHER FINDINGS: None IMPRESSION: NO EVIDENCE OF DURAL VENOUS THROMBOSIS
--- NOTE | 2016-12-25 19:37 | CONS ---
CONSULTATION REPORT: DATE OF CONSULTATION: 12/25/16 LOCATION: She is currently located in the labor and delivery department room 101, bed 1. REASON FOR CONSULTATION: Unequal pupils. HISTORY OF PRESENT ILLNESS: Ms. Aleman is a very nice female, G3, P1-0-1-1 at approximately 36 weeks with a history of in the past, was admitted to the hospital on 12/24/16, underwent a without complications, but afterwards developed some coughing and subsequently developed some wound dehiscence. At that time, she was taken back to surgery to drain a hematoma and to close the wound. Since that time, she has done well. She gave to a healthy baby boy. She has been recovering well until this morning when the nurse noted unequal pupils. She states that early this morning when she saw the patient, her pupils were reactive, but several hours later when she reexamined the patient, her right pupil was large and reactive compared to the left pupil. The patient had had a scopolamine patch placed 1 day prior, but took it off at some point this morning. She denies any other current issues at this time including no headache, no nausea or vomiting, no speech difficulties, no swallowing difficulties, no double vision, no eye pain, no hearing loss or hearing changes, no tinnitus, no focal numbness, tingling, or weakness in her arms or legs, no scotoma or bright lights in her vision, no blurry vision, and is otherwise feeling well. She denies any significant pain in her abdomen at this point, she does have a mild cough but nonproductive. She has no history of blood clots or bleeding disorders reported. She has no history of heart problems. She is a smoker, quit at the time of this . She has otherwise been in her usual state of health. She has never had any symptoms like this in the past. There is no history of multiple sclerosis noted. PAST MEDICAL HISTORY: Includes asthma and arthritis. PAST SURGICAL HISTORY: Includes a gastric sleeve in 2009, tonsillectomy in 2008 , ankle surgery in 2008, C-sections including the one on this admission. FAMILY HISTORY: Her family history is significant for maternal grandmother due to unknown causes, maternal grandfather due to unknown causes. Other history is noncontributory. SOCIAL HISTORY: She is , lives with her spouse. 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 She did use cigarettes but quit at the time of this . She denies any alcohol or drug use. She consumes approximately 1 cup of coffee per day. MEDICATIONS: Currently on: 1. Tylenol 650 mg q.4 hours p.r.n. 2. Calcium carbonate. 3. Dibucaine ointment. 4. Diphenhydramine p.o. for itching. 5. Colace. 6. Phenergan. 7. Glycerin adult suppository. 8. Guaifenesin. 9. Dextromethorphan. 10. Ibuprofen. 11. She does have some Percocet for pain. 12. Previously on scopolamine, which has been removed. 13. Simethicone. 14. Witch nicole tucks pads. 15. Ambien. ALLERGIES: NICKEL and SHELLFISH. REVIEW OF SYSTEMS: Review of systems in 14 organ systems as noted above, otherwise negative. PHYSICAL EXAMINATION: Vital Signs: Temp of 97.6, pulse of 58, respiratory rate of 16, pulse ox of 99%, blood pressure 104/57. In general, she is a well- nourished, well-developed female, lying in her hospital bed. She is pleasant, well dressed, well groomed. HEENT: She is normocephalic/atraumatic. Sclerae are anicteric. Mucous membranes are moist. There is no exophthalmos. Oropharynx is clear. Neck is supple. No thyromegaly. No carotid bruits. No meningismus. Chest: Clear to auscultation bilaterally. Cardiovascular: Regular rate and rhythm. Abdomen is tender, distended with an incision, well dressed. Extremities: There is no clubbing, cyanosis, or edema. There are no cords or erythema present. Skin is warm and dry. On neurologic exam, she is awake, alert, oriented x3. Her speech is fluent. There is no dysarthria. Repetition is intact. Recall of recent and remote events is intact. Vocabulary is intact. Her mood is somewhat dysthymic. Affect looks congruent. Cranial nerves, pupils, she has anisocoria with a right pupil that is 6 mm and not reactive, a left pupil that is 4 mm to 2 mm and reactive. The left pupil does not react in the dark or with light or with accommodation or near vision. The left pupil is reactive to light, to near vision and reacts appropriately in the dark. The left pupil does constrict with light to the right eye, but there is no constriction of the right pupil with light to the left eye. Visual ruiz are full. There is no ptosis noted. Extraocular muscles are intact in all quadrants with no double vision. No diplopia. Rather, no nystagmus is noted. She had no papilledema bilaterally. There is no retinal hemorrhaging appreciated. Her face sensation is intact to light touch, pinprick. Her face is symmetric. There is no drooping in the upper or lower face bilaterally. Her hearing is intact. There is no nystagmus noted with head movements. Her palate raises symmetrically. Her tongue is midline. Sternocleidomastoid and trapezius are both intact. Motor Exam: She spontaneously moves all extremities antigravity with good tone and bulk. Her strength is 5/5 throughout. There is no drift. DTRs are 2+ and symmetric in the upper and lower extremities with equivocal Babinski's bilaterally. Finger- to-nose and rapid alternating movements are intact without tremor, dysdiadochokinesis, or dysmetria. Sensation is intact to light touch and pinprick throughout. No focal deficits. Gait was not tested at this time. No anhidrosis noted, no autonomic symptoms noted. LABORATORY DATA: Lab work includes white count of 9.5, hemoglobin of 7.5, hematocrit of 23, RBC of 2.82. ASSESSMENT AND PLAN: Ms. Aleman is a 31-year-old female who presented to the hospital for , underwent incision, revision after she dehisced from coughing, but has since done well. This morning, was noted to have unequal pupils with a right pupil that was unreactive. On my examination, it appears that this pupil is unreactive in light and dark and is unreactive with near vision or accommodation. My suspicion for Adie's tonic pupil is low. My suspicion for Brady's syndrome is low. My suspicion for third nerve involvement is low given the fact that she has no other cranial nerve findings. Her examination is completely nonfocal and I suspect that this is likely pharmacologic mydriasis related to the scopolamine, which has been removed. However, the patient does have a tobacco use. She is in the peripartum period. Certainly, there is an increased risk of blood clots during this time. I would like to rule out the possibility of either some demyelinating disease versus tumor versus aneurysm versus venous thrombosis in the cavernous sinus or else where. This is unlikely given the fact that she is not having any eye pain , no proptosis, no headache, but I do think given the acute nature of her symptoms, an MRI and an MRA and an MRV of the brain is appropriate. Otherwise, I would not start her on any medications pending the results of those studies. I explained that the patch has been removed, but sometimes the symptoms can lag behind. I expect that her pupil will improve over time. The possibility of an Adie's tonic pupil does exist. Typically, these are relatively benign in nature , but I would like to rule out secondary causes first. If she does not improve, I would suggest we also get an ophthalmological examination. I will continue to follow her very closely and make further recommendations if necessary. Thank you for the opportunity to participate in her care. [id number]/[facility] #: [id number] VIOLETA
[2016-12-26] MEDS: oxyCODONE/Acetamin 5/325 MG* TAB PO PRN ×2 (04:12→12:05)
[2016-12-26] MEDS: Ferrous Gluconate TAB* 324 MG TAB PO SCH (08:19)
[2016-12-26] MEDS: Docusate CAP* 100 MG PO SCH (08:19)
[2016-12-26] MEDS: Simethicone TAB* 80 MG TAB.CHEW PO SCH ×2 (08:19→12:05)
[2016-12-26] MEDS: GuaiFENesin DM sugar free* 5 ML UDC PO PRN (08:19)
[2016-12-26] MEDS: Calcium Carbonate CHEW TAB* 500 MG (TUMS) PO PRN (08:20)
[2016-12-26] MEDS: Ibuprofen TAB* 600 MG PO PRN (08:21)
[2016-12-26 08:25] VITALS: BP 119/66
--- NOTE | 2016-12-26 23:15 | PN ---
PROGRESS NOTE: DATE OF PROGRESS NOTE: 12/26/16 LOCATION: Currently in Labor and Delivery, 102, bed 1. SUBJECTIVE: Overnight, the patient has no new complaints. This morning, she is breast-feeding her baby. She feels better. She has had no new neurologic issues. No vision loss. No blurry vision. No headache, no speech difficulty, swallowing difficulties, facial numbness or tingling, no hearing loss. No focal tingling, numbness or weakness in her arms or legs. She has otherwise been in her usual state of health overnight recovering from the . STUDIES DONE: 1. MRI of the brain reviewed, showed no evidence of demyelinating disease. No bleeding or mass effect. 2. MRA of the brain reviewed was normal. 3. MRV of the brain reviewed was normal. OBJECTIVE: Temperature 98.8, pulse of 87, respiratory rate of 18, pulse ox 99% , blood pressure 119/66. She has been afebrile. Blood pressures have been stable. In general, she is a well-nourished, well-developed female in no acute distress. She is sitting in her bed, pleasant. HEENT: She is normocephalic, atraumatic. Sclerae are anicteric. Mucous membranes are moist. Oropharynx is clear. Neck is supple. Chest: Clear to auscultation bilaterally. Cardiovascular is regular rate and rhythm. Abdomen is somewhat distended and nontender. Extremities: No clubbing, cyanosis, or edema. On neurologic exam, she is awake, alert, and oriented x3. Her speech is fluent. There is no dysarthria. Repetition is intact. Recall of recent and remote events is intact. Vocabulary is intact. Mood is euthymic. Affect is mood congruent. Cranial Nerves: Pupils on the right, she has a pupil that is 5 , reacts to 4. It is sluggish but reactive. On the left, 4 to 3, reactive. Her pupils do react to near sight, although remain unequal. In general, the right pupil is improved, more reactive today. Her face is symmetric. Sensation is intact throughout. Tongue is midline. Palate is symmetric. Sternocleidomastoid and trapezius intact. She is spontaneously moving all extremities, antigravity, no drift, 5/5 through-out. Sensation grossly intact to light touch and pinprick. No tremors were noted. I did not test her gait. ASSESSMENT AND PLAN: Ms. Aleman is a 31-year-old female status post a section, who developed anisocoria with a large pupil on the right. It was initially unreactive in light or dark or with convergence. At this point, her pupil is improved, sluggish but reactive. Left pupil appears normal. She did have a scopolamine patch. The nurse told me this morning that there may have been some contact after she pulled the scopolamine patch off with her right eye. In any event, I suspect that this is likely medication effect from the scopolamine. She has improved. She has had no other symptoms. Her MRI imaging is normal. Her examination is otherwise nonfocal. I suspect that this will improve and resolve. I told her treating physician to have her follow up with her eye doctor. Of course, we will be happy to see her if any new symptoms develop, but at this point I see no evidence of tumor, aneurysm, arteriovenous malformation, venous sinus thrombosis, demyelinating disease, or other intrinsic lesions of the eye. Thank you for the opportunity to participate in her care. Follow up as necessary with Neurology. [id number]/[facility] #: [id number] VIOLETA
== END 2016-12-26 13:35 | disposition home or self-care (01) | DRG 540 ==
LOC: MCHOB 07:00
PROVIDERS: ADMIT Obstetrics & Gynecology; ATTEND Obstetrics & Gynecology
PROC: 10D00Z1 Extraction of Products of Conception, Low, Open Approach (ICD-10-PCS; 2016-12-24)
PROC: 4A1HXCZ Monitoring of Products of Conception, Cardiac Rate, External Approach (ICD-10-PCS; 2016-12-24)
PROC: 0W3F0ZZ Control Bleeding in Abdominal Wall, Open Approach (ICD-10-PCS; principal; 2016-12-24 08:45)
DX: O34.211 Maternal care for low transverse scar from previous cesarean delivery (principal); E66.9 Obesity, unspecified; D64.9 Anemia, unspecified; Z87.891 Personal history of nicotine dependence; Z3A.39 39 weeks gestation of pregnancy; Z37.0 Single live birth; O69.89X0 Labor and delivery complicated by other cord complications, not applicable or unspecified; Z91.013 Allergy to seafood; Z91.048 Other nonmedicinal substance allergy status; O90.81 Anemia of the puerperium; H57.02 Anisocoria; O90.89 Other complications of the puerperium, not elsewhere classified; O99.214 Obesity complicating childbirth; Z68.37 Body mass index [BMI] 37.0-37.9, adult; O99.844 Bariatric surgery status complicating childbirth; O90.0 Disruption of cesarean delivery wound; O90.2 Hematoma of obstetric wound
CPT/HCPCS: 36415; 70544; 70551; 85014; 85018; 85025; A9270-GY; J0690; J1885; J2250; J2300; J2405; J2590; J3010

== ENCOUNTER 2019-02-19 09:25 | Day surgery (SDC) | payer OTHER ==
[~2019-02-19 09:25] MED LIST: Buffered Lidocaine 1% SYRIN* 1 ML/SYRINGE INTRADERM ONE; Lactated Ringers 1000 ML Bag* 1,000 ML IV SCH
[2019-02-19] MEDS ORDERED: ceFAZolin 2 GM PREMIX in ORs 2 GM/50 ML BAG ONE (09:54)
[2019-02-19] MEDS ORDERED: Buffered Lidocaine 1% SYRIN* 1 ML/SYRINGE INTRADERM ONE (09:54)
[2019-02-19] MEDS ORDERED: Bupivacaine 0.5%* 50 ML MDV VIAL ONE (12:16)
[2019-02-19] MEDS ORDERED: Propofol* 10 MG/ML 20 ML BTL ONE (12:37)
[2019-02-19] MEDS ORDERED: HYDROmorphone INJ1* 1 MG/ML SYRINGE ONE ×2 (12:37→14:12)
[2019-02-19] MEDS ORDERED: Naloxone* 0.4 MG/ML 1 ML VIAL IV PRN (12:45)
[2019-02-19] MEDS ORDERED: Ondansetron INJ* 2 MG/ML VIAL IV PRN (12:45)
[2019-02-19] MEDS ORDERED: Dexamethasone IV* 4 MG/ML 1 ML (4 MG) ONE (13:38)
[2019-02-19] MEDS ORDERED: Ketorolac INJ* 30 MG/ML 1 ML VIAL ONE (13:38)
[2019-02-19] MEDS ORDERED: Ondansetron INJ* 2 MG/ML VIAL ONE ×2 (13:38→14:50)
[2019-02-19] MEDS: HYDROmorphone INJ1* 1 MG/ML SYRINGE IV PRN ×5 (14:13→14:42)
[2019-02-19] MEDS ORDERED: oxyCODONE TAB* 5 MG TAB ONE (15:12)
[2019-02-19 15:24] VITALS: BP 118/82
--- NOTE | 2019-02-19 21:04 | OP ---
DATE OF OPERATION: 02/19/19 [facility] DATE OF : 81 SURGEON: Znaa Pham MD SERVOMECHANISM ASSEMBLER: KAREEM Nixon PRE-OP DIAGNOSIS: Posterior tibial tear, left ankle. POST-OP DIAGNOSIS: Posterior tibial tear, left ankle. OPERATIVE PROCEDURES: Debridement of posterior tibial tendon, transfer of FDL tendon, and medial calcaneal osteotomy. DESCRIPTION OF PROCEDURE: The patient was taken to the operating in a supine position. We rolled the ankle to the inward direction, exposing the lateral hindfoot. Parallel to the peroneus longus, we incised the skin and subluxed the peroneus longus dorsally. Directly through the floor of the peroneus longus groove on the lateral calcaneus, we divided the calcaneus from lateral to medial with the oscillating saw. We completed the osteotomy with an osteotome and then distracted it with a small laminar associate professor of education without teeth. We were able to translate the calcaneus a full centimeter medially, pinning with a 55 mm 6.7 cannulated screw Arthrex from the heel up to the anterior process. We then irrigated thoroughly, closing the lateral wound with Monocryl , panchito for the skin, and a Prolene for the stab wound at the heel. We then rolled the foot externally to provide a longitudinal incision over the course of the posterior tibial tendon. We opened up the sheath of the tendon and there were 2 tears in the tendon. The more central deep portion of the tendon was intact, but there were 2 superficial tears through the more superficial 50% of the fibers. These were debrided with a 15 blade. One was down near the insertion point and another one right behind the medial malleolus. We transferred the FDL tendon by tracing it down to the knot of Fab. We sewed it [id number] into the FHL tendon with a 2-0 Vicryl, transected the tendon at that level, and then rerouted plantar to dorsal through a 5 mm drill hole at the medial navicular. This was anchored in the 6.2 mm Bio-Tenodesis screw. We then sewed the transferred tendon into the posterior tibial tendon with [id number] sutures of 2-0 Monocryl. We repaired the sheath with 2-0 Monocryl, subcu with 3-0 Monocryl, and panchito for the skin. Compression dressing was applied with a splint. [id number]/[facility] #: [id number] VIOLETA
== END 2019-02-19 16:07 | disposition home or self-care (01) ==
LOC: OR 09:25
PROVIDERS: ATTEND Orthopaedic Surgery
DX: S86.112A Strain of other muscle(s) and tendon(s) of posterior muscle group at lower leg level, left leg, initial encounter (principal); W01.0XXA Fall on same level from slipping, tripping and stumbling without subsequent striking against object, initial encounter; Y92.9 Unspecified place or not applicable; J45.909 Unspecified asthma, uncomplicated; M19.90 Unspecified osteoarthritis, unspecified site
CPT/HCPCS: 81025; 88304; A9270-GY; C1713; J0690; J1100; J1170; J1885; J2405; J2704; J3490